=== PATIENT | male | born 2005 | race Hispanic/Latino ===

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

== ENCOUNTER 2025-01-07 22:50 | Emergency (ER) | payer BC ==
[~2025-01-07] VITALS: Ht 167.6 cm; Wt 110.7 kg
[~2025-01-07 22:50] MED LIST changes: +BENTYL10 MG/1 ML PO; +DICYCLOMINE HCL20 MG PO; +ONDANSETRON ODT4 MG PO
[2025-01-07 23:18] VITALS: TEMP 99.7
[2025-01-07] MEDS: KETOROLAC TROMETHAMINE 60 MG/2 ML VIAL IM STA (23:47)
[2025-01-08 00:03] LABS: CORONAVIRUS COVID-19 AG NEGATIVE (NEGATIVE); INFLUENZA A AG NEGATIVE (NEGATIVE); INFLUENZA B AG NEGATIVE (NEGATIVE); STREPTOCOCCUS GRP A ANTIGEN NEGATIVE (NEGATIVE)
[2025-01-08 00:59] VITALS: PULSE 118; RESP 18
[2025-01-08] MEDS ORDERED: PREDNISONE20 MG PO (01:34)
[2025-01-08] MEDS ORDERED: AZITHROMYCIN250 MG PO (01:34)
[2025-01-08] MEDS ORDERED: VENTOLIN HFA18 GM INH (01:34)
[2025-01-08 02:25] VITALS: BP 133/79; PULSE 105; RESP 20; O2SAT 100
== END 2025-01-08 02:08 | disposition home or self-care (01) ==
LOC: ER 23:02
DX: R06.02 Shortness of breath (principal); J06.9 Acute upper respiratory infection, unspecified; R53.1 Weakness; R53.81 Other malaise; F90.9 Attention-deficit hyperactivity disorder, unspecified type; Z11.52 Encounter for screening for COVID-19
CPT/HCPCS: 71046; 83518; 87070; 87428; 99283; J1885

== ENCOUNTER → 2025-02-04 | Outpatient (REF) | payer BC ==
[~2025-02-04] MED LIST changes: +AZITHROMYCIN250 MG PO; +PREDNISONE20 MG PO; +VENTOLIN HFA18 GM INH
[2025-02-04 16:06] LABS: BASOPHILS # (AUTO) 0.1 (0.0-0.1); BASOPHILS % 0.4 % (0.0-1.0); EOSINOPHILS # (AUTO) 0.4 (0.0-0.4); HEMATOCRIT 46.6 % (38.2-49.6); HEMOGLOBIN 15.7 g/dL (14.0-18.0); LYMPHOCYTES # (AUTO) 3.9 (1.0-3.2); LYMPHOCYTES % 28.5 % (18.0-39.1); MEAN CORPUSCULAR HEMOGLOBIN 29.9 pg (28-32); MEAN CORPUSCULAR HGB CONC 33.7 g/dL (31-35); MEAN CORPUSCULAR VOLUME 88.8 fL (81-99); MONOCYTES # (AUTO) 1.1 (0.2-0.8); MONOCYTES % 7.9 % (4.4-11.3); NEUTROPHILS # (AUTO) 8.1 (2.1-6.9); NEUTROPHILS % 59.7 % (38.7-80.0); PLATELET COUNT 247 x10e3/uL (140-360); RED BLOOD COUNT 5.25 x10e6/uL (4.3-5.7); RED CELL DISTRIBUTION WIDTH 12.7 % (11.7-14.4); WHITE BLOOD COUNT 13.49 x10e3/uL (4.8-10.8)
== END ==
LOC: CT 15:29
PROVIDERS: ATTEND Internal Medicine Infectious Disease
DX: Z22.7 Latent tuberculosis (principal)
CPT/HCPCS: 36415; 71250; 85025